=== PATIENT | female | born 1985 | race Asian ===

== ENCOUNTER → 2019-02-19 | Outpatient (CLI) | payer OTHER ==
[~2019-02-19] MED LIST: ISOVUE-370 76% 100ML VIAL (Q9967) As Ordered ONE
--- NOTE | 2019-02-19 16:36 | REP ---
HYSTEROSALPINGOGRAM: Hysterosalpingogram was performed. The patient's referring clinician catheterized the cervix and injected contrast into the uterine cavity. I obtained fluoroscopic images. The uterus appears retroverted. No filling defect is seen. There is free passage of contrast through both fallopian tubes, with free bilateral intraperitoneal spillage of contrast consistent with bilateral fallopian tube patency. IMPRESSION: Bilateral fallopian tubes are patent. 0.6 minutes of fluoroscopy time utilized. Electronically Signed by Dylan Burgess MD 02/19/2019 04:52 P
== END ==
LOC: M RADPRO 11:40
PROVIDERS: ATTEND Obstetrics & Gynecology
DX: N85.4 Malposition of uterus (principal); N97.9 Female infertility, unspecified
CPT/HCPCS: 58340; 74740; Q9967